=== PATIENT | male | born 1950 | race Caucasian/White ===

== ENCOUNTER → 2019-06-28 07:48 | Outpatient (CLI) | payer MEDICARE, OTHER, SELFPAY | PROVIDERS: PCP Nurse Practitioner; Visit Provider Nurse Practitioner | DX: I49.9 Cardiac arrhythmia, unspecified (principal); I10 Essential (primary) hypertension | CPT/HCPCS: 93017; 93018 ==

== ENCOUNTER → 2024-01-31 11:19 | Outpatient (CLI) | payer MEDICARE, OTHER, SELFPAY ==
--- NOTE | 2024-01-31 11:20 | DI.RAD.S_ITS ---
PROCEDURE: XR TIBIA FIBULA LT 2V INDICATIONS: Left lower leg pain TECHNIQUE: 2 views of the tibia and fibula were acquired. COMPARISON: None. FINDINGS: Bones: No fractures or dislocations. No suspicious bony lesions. Soft tissues: No suspicious soft tissue calcifications or masses. IMPRESSION: No acute bony abnormality. Dictated by: Brenda Mehta M.D. on 01/31/2024 at 19:15 Approved by: Brenda Mehta M.D. on 01/31/2024 at 19:16
== END ==
PROVIDERS: PCP Nurse Practitioner; Referring Provider Nurse Practitioner Family; Visit Provider Nurse Practitioner Family
DX: M79.605 Pain in left leg (principal)
CPT/HCPCS: 73590